=== PATIENT | male | born 1960 | race Caucasian/White ===

== ENCOUNTER 2019-04-03 19:10 | Observation (INO) ==
[2019-04-03] MEDS ORDERED: NS 1,000 ML IV ONE ×2 (19:26→22:06)
[2019-04-03] MEDS ORDERED: ZOFRAN IV ONE (19:26)
--- NOTE | 2019-04-03 20:05 | Diag Imaging Result Doc PS360 ---
EXAM: CT HEAD W/O CONTRAST 04/03/2019 HISTORY: dizziness TECHNIQUE: This exam was performed using automated exposure control, adjustment of mA or kV according to patient size, and/or use of iterative reconstruction technique. COMMENT: There is no evidence of mass effect, bleed, or abnormal extra-axial fluid collection. There is opacification of the visualized portion of the right maxillary sinus and mucosal thickening and fluid are seen in multiple ethmoid air cells bilaterally. There is mucosal thickening and fluid in the right sphenoid sinus. There is some fluid in mastoid air cells bilaterally more so on the right than the left. The calvarium is intact. IMPRESSION: No evidence of acute intracranial disease. Sinusitis as described with bilateral mastoid effusions. Electronically signed by Bassam Rodney 04/03/2019 8:03 PM
[2019-04-03 20:49] LABS: AGAP 14; ALBUMIN 5.7 g/dL (3.5-5.0); ALKALINE PHOSPHATASE 87 U/L (32-122); BUN 12 mg/dL (8-22); CALCIUM 10.8 mg/dL (8.8-10.2); CHLORIDE 98 mmol/L (98-107); COSMO 273; CREATININE 1.1 mg/dL (0.7-1.2); ESTIMATED GFR > 60; GLUCOSE 124 mg/dL (70-104); GOT 28 U/L (10-34); GPT 26 U/L (10-44); LIPASE 69 U/L (13-60); SODIUM 136 mmol/L (136-145); TCO2 24 mmol/L (25-35); TOTAL PROTEIN 8.4 g/dL (6.3-8.3)
[2019-04-03] MEDS ORDERED: TYLENOL PO ONE (20:52)
[2019-04-03 21:00] LABS: FREE T4 1.2 ng/dL (0.93-1.70); TSH 1.59 uIUmL (0.27-4.20)
[2019-04-03 21:20] LABS: BILIRUBIN URINE NEGATIVE (NEGATIVE); BLOOD URINE NEGATIVE (NEGATIVE); GLUCOSE URINE NEGATIVE (NEGATIVE); KETONE URINE 3+(Large) mg/dL (NEGATIVE); LEUKOCYTES URINE NEGATIVE (NEGATIVE); NITRITE URINE NEGATIVE (NEGATIVE); PROTEIN URINE NEGATIVE (NEGATIVE); SP GRAVITY URINE 1.015; UROBILINOGEN URINE 1 mg/dL
[2019-04-03 21:21] LABS: CLARITY CLEAR (CLEAR); COLOR YELLOW
[2019-04-03 21:26] LABS: BASO# 0.03 X1000 (0.0-0.2); BASO% 0.2 % (0.0-0.8); EOS# 0.04 X1000 (0.0-0.7); EOS% 0.3 % (0.0-10.0); HEMATOCRIT 47.4 % (42.0-52.0); HEMOGLOBIN 16.2 g/dL (14.0-18.0); IMM GRAN# 0.03 X1000 (0.0-0.04); IMM GRAN% 0.2 % (0.0-0.5); LYMPH% 8.5 % (20.5-51.1); MCH 30.8 PG (27-31); MCHC 34.2 g/dL (33-37); MCV 90.1 FL (81-99); MONO# 0.26 X1000 (0.11-0.59); MPV 9.4 FL (7.4-10.4); NEUT# 11.42 X1000 (1.4-6.5); NEUT% 88.8 % (42.2-75.2); PLT 308 X1000 (130-400); RBC 5.26 XMIL (4.7-6.1); RDW 12.7 % (11.5-14.5); WBC 12.88 X1000 (4.8-10.8)
[2019-04-03 21:27] LABS: URINE BACTERIA 2+ /HFP; URINE CAST NONE SEEN /LPF; URINE EPITHELIAL CELLS <10 /HPF (<10); URINE YEAST NONE SEEN /HPF
[2019-04-03 21:28] LABS: URINE SOURCE CLEAN CATCH; URINE WBC <10 /HPF (<10)
[2019-04-03 21:29] LABS: UR AMPHETAMINES QUAL NONE DETECTED (NONE DETECT); UR BARBITUATES QUAL NONE DETECTED (NONE DETECT); UR BENZODIAZEPIN QUAL PRESUMPTIVE POSITIVE (NONE DETECT); UR CANNABINOIDS QUAL PRESUMPTIVE POSITIVE (NONE DETECT); UR COCAINE QUAL NONE DETECTED (NONE DETECT); UR METHADONE QUAL NONE DETECTED (NONE DETECT); UR METHAMPHETAMINE QUAL NONE DETECTED (NONE DETECT); UR OPIATES QUAL NONE DETECTED (NONE DETECT); UR OXYCODONE QUAL NONE DETECTED (NONE DETECT); UR PCP QUAL NONE DETECTED (NONE DETECT); UR PROPOXYPHENE QUAL NONE DETECTED (NONE DETECT); UR TCA QUAL NONE DETECTED (NONE DETECT)
[2019-04-03] MEDS ORDERED: PHENERGAN IM ONE (21:46)
[2019-04-03] MEDS ORDERED: APRESOLINE IV ONE (21:47)
[2019-04-03] MEDS ORDERED: ZOFRAN IV PRN (21:55)
--- NOTE | 2019-04-03 21:56 | Diag Imaging Result Doc PS360 ---
EXAM: CHEST-PORTABLE 04/03/2019 HISTORY: dizziness, elevated BP TECHNIQUE: AP portable at 2152 COMMENT: There is no evidence of acute cardiac or pulmonary disease. Compared to 03/29/2019 there has been no significant change. IMPRESSION: No evidence of acute disease. Electronically signed by Bassam Rodney 04/03/2019 9:54 PM
[2019-04-03] MEDS ORDERED: CATAPRES PO PRN (21:57)
--- NOTE | 2019-04-03 22:01 | PROVIDER DOCUMENTATION ---
This chart was entered by Neftali Martinez Scribe, acting as scribe for Deidre Pierce MD. HPI-General Adult - General Chief Complaint: Dizziness Stated Complaint: EXTREMITY PAIN Time Seen by Provider: 04/03/19 19:23 Source: patient Allergies/Adverse Reactions: Patient Allergies Allergy/AdvReac Type Severity Reaction Status Date / Time No Known Allergies Allergy Verified 03/08/18 13:32 Home Medications: Home Medication List Medication Instructions Recorded Confirmed Last Taken Type Clonidine [Catapres] 1 tab PO HS 03/08/18 04/03/19 03/07/18 History Ziprasidone HCl [Geodon] 1 cap PO HS 03/08/18 04/03/19 Unknown History Atorvastatin Calcium 20 mg PO DAILY 04/03/19 04/03/19 04/03/19 History Methadone 5 mg PO BID 04/04/19 04/04/19 Unknown History - History of Present Illness -Gen Adult Nature of Presenting Problems: Pt is a 59 yom who presents to the ED with multiple complaints. Pt states he began feeling bad at approximately 1500. Pt complains of felling dizzy, having a headache, being nauseas, vomiting, having chills, and abdomen pain. Pt states he took a 5mg [place] but states it did not help. Location of Pain/Injury: reports: head, abdomen, generalized Quality of Pain: reports: aching Severity: reports: mild Onset/Duration: reports: 4-6 hours ago Timing: reports: still present Associated Symptoms: reports: dizziness, headaches, nausea, vomiting, weakness Similar Symptoms Previously?: No Recently seen or treated by another doctor?: No Review of Systems - Adult - REVIEW OF SYSTEMS - ADULT Constitutional: reports: see HPI, chills Eyes: reports: no symptoms reported Ears, Nose, Mouth & Throat: reports: no symptoms reported Cardiovascular: reports: no symptoms reported Respiratory: reports: no symptoms reported Gastrointestinal: reports: see HPI, abdominal pain (Epigastric), nausea, vomiting Genitourinary: reports: no symptoms reported Musculoskeletal: reports: no symptoms reported Integumentary: reports: no symptoms reported Neurological: reports: see HPI, dizziness/vertigo, headache/migraines Psychiatric: reports: no symptoms reported Endocrine: reports: no symptoms reported Hematologic/Lymphatic: reports: no symptoms reported Allergic/Immunologic: reports: no symptoms reported All Other Systems: Reviewed and Negative Past History - Adult - PAST MEDICAL HISTORY-ADULT Review of Records: reports: Old Records Reviewed, Nursing Assessment Review, Medications Reviewed, Social history reviewed & non-contributory. Major Childhood Illnesses: reports: denies history Cardiovascular: reports: denies history Respiratory: reports: denies history Gastrointestinal: reports: denies history Obstetrical/Gynecological: reports: denies history Genitourinary: reports: denies history Musculoskeletal: reports: denies history Neurological: reports: denies history Endocrine/Immune: reports: denies history Other Conditions: reports: denies history - IMMUNIZATION STATUS Childhood Immunizations: See Nurse Assessment Flu Vaccine: See Nurse Assessment - FAMILY HISTORY Family History: reviewed, not pertinent - SOCIAL HISTORY Smoking: cigarettes, greater than 1 pack/day Substance Use: none/never, denies Alcohol Use Frequency: never Physical Exam-General - PHYSICAL EXAM-ADULT Initial Vital Signs Reviewed: Yes - CONSTITUTIONAL General Appearance: alert, mild distress - EYES Eyes: PERRL/EOMI - HEAD, EARS, NOSE, MOUTH & THROAT HENMT: normocephalic/atraumatic, moist mucous membranes - NECK Neck: non-tender, full range of motion - RESPIRATORY Respiratory: chest non-tender, lungs clear, normal breath sounds, no pleuratic chest pain, no respiratory distress, no accessory muscle use - CARDIOVASCULAR Cardiovascular: normal peripheral pulses, regular rate, rhythm, no edema, no murmur - GASTROINTESTINAL (ABDOMEN) Abdominal Exam: soft, tenderness (Epigastric) - MUSCULOSKELETAL Extremity: normal range of motion, non-tender - SKIN Integumentary: normal color, diaphoresis - NEUROLOGIC Neurologic: grossly normal, no motor/sensory deficits - PSYCHIATRIC Psych/Mental Status: normal mood/affect, normal thought content, normal thought process, oriented x 3 Progress - PLAN OF CARE/RESULTS Progress/Plan/Lab Results: Vital Signs - 8 hr 04/03/19 19:13 Temperature 97.6 F Pulse Rate 68 Respiratory Rate 22 Blood Pressure 218/113 O2 Sat by Pulse Oximetry 98 Patient still complaining of dizziness. Spoke to Dr Gordillo about admission for further workup. Patient accepted to Dr Gordillo for admission. Stable for floor. Result Diagrams: 04/03/19 20:27 04/03/19 19:52 - XRAY 1 XRAY Study: Chest (EXAM: CHEST-PORTABLE 04/03/2019 HISTORY: dizziness, elevated BP TECHNIQUE: AP portable at 2152 COMMENT: There is no evidence of acute cardiac or pulmonary disease. Compared to 03/29/2019 there has been no signifi cant change. IMPRESSION: No evidence of acute disease. Electronically signed by Bassam Rodney 04/03/2019 9:54 PM) - CT/MRI 1 CT Study: Head (EXAM: CT HEAD W/O CONTRAST 04/03/2019 HISTORY: dizziness TECHNIQUE: This exam was performed using automated exposure control, adjustment of mA or kV according to patient size, and/or use of iterative reconstruction technique. COMMENT: There is no evidence of mass effect, bleed, or abnormal ex tra-axial fluid collection. There is opacification of the visualized portion of the right maxillary sinus and mucosal thickening and fluid are seen in multiple ethmoid air cells bilaterally. There is mucosal thickening and fluid in the right sphenoid sinus. There is some fluid in mastoid air cells bilaterally more so on the right than the left. The calvarium is intact. IMPRESSION: No evidence of acute intracranial disease. Sinusitis as described with bilateral mastoid effusions. Electronically signed by Bassam Rodney 04/03/2019 8:03 PM) - CONSULTS/PCP/HOSPITALIST Notification #1 *Consult/PCP/Hospitalist*: Rand Time Discussed: 21:50 Consult Disposition: Admit Departure - Departure Date of Disposition Decision: 04/03/19 Time of Disposition Decision: 22:00 DIAGNOSIS: Dizziness, Hypertensive urgency, Nausea Headache Qualifiers: Headache type: unspecified Disposition: ADMITTED INPATIENT Certified Medical Emergency: Emergent Condition: Stable - Critical Care Note This patient required my direct & personal management of CC.: No Attestation - Physician/ TACHO Attestation Patient care was provided by Advanced Practice Provider:: No The physician spent face to face time with patient:: Yes Advanced Practice Provider documentation review:: Supervising physician onsite and consulted in the evaluation and care of this patient. The physician did have a face to face encounter with the patient. This chart was documented by the indicated scribe, (Neftali Martinez Scribe) and accurately reflects the services I performed and decisions made by me, Deidre Pierce MD, as attested by the provider's signature.
[2019-04-03 22:05] LABS: INR 0.93; PROTIME 12.9 Seconds (11.0-16.0)
[2019-04-03 22:06] LABS: PTT 29.6 Seconds (22.3-41.8)
[2019-04-03 23:01] LABS: INFLUENZA A NEGATIVE (NEGATIVE); INFLUENZA B NEGATIVE (NEGATIVE)
[2019-04-04] MEDS ORDERED: GEODON PO SCH ×2 (00:46→01:00)
[2019-04-04] MEDS ORDERED: CATAPRES PO SCH ×2 (00:46→01:00)
[2019-04-04] MEDS: METHADONE PO SCH ×2 (01:06→09:57)
--- NOTE | 2019-04-04 06:22 | EKG Report ---
Test Performed on : 04/04/2019 06:09:21 AM Test Reason : dizziness Blood Pressure : / mmHG Vent. Rate : 071 BPM Atrial Rate : 071 BPM P-R Int : 158 ms QRS Dur : 084 ms QT Int : 432 ms P-R-T Axes : 058 026 047 degrees QTc Int : 469 ms Normal sinus rhythm. Normal ECG No previous ECGs available Unconfirmed Result
[2019-04-04 08:19] VITALS: BP 123/77
[2019-04-04] MEDS ORDERED: LIPITOR PO SCH (09:00)
[2019-04-04] MEDS ORDERED: ROCEPHIN 1 GM in NS 50 ML IV ONE (09:15)
--- NOTE | 2019-04-04 14:25 | EKG Report ---
Test Performed on : 04/04/2019 2:26:33 PM Test Reason : DIZZINESS Blood Pressure : / mmHG Vent. Rate : 075 BPM Atrial Rate : 075 BPM P-R Int : 158 ms QRS Dur : 088 ms QT Int : 430 ms P-R-T Axes : 068 027 055 degrees QTc Int : 480 ms Normal sinus rhythm. Prolonged QT Abnormal ECG When compared with ECG of 04-APR-2019 06:09, (Unconfirmed) No significant change was found Unconfirmed Result
--- NOTE | 2019-04-12 08:00 | HISTORY AND PHYSICAL ---
59-year-old white male patient of mine who presented to the emergency room with multiple complaints. He had been feeling bad approximately since 1500 hours that day. Complains of feeling dizzy, having a headache, being nauseated, vomiting, shaking chills, abdominal pain. He took a 5 mg [place] and did not help. He is on background methadone medicines. He complained of generalized headache and abdominal pain described as aching, mild. It had been 4-6 hours in duration, still present. He had some associated dizziness, headache, nausea, vomiting, weakness. Nothing quite similar to this. ALLERGIES: He has no known allergies. MEDICATIONS: 1. Clonidine 0.1 at bedtime. 2. Geodon 1 capsule p.o. at bedtime. 3. Lipitor 20 daily. 4. Methadone 5 b.i.d. REVIEW OF SYSTEMS: GENERAL: He has been having shaking chills. EYES: No irritation, visual acuity changes, field cuts. EARS: He had some earaches lately and had been started on some Septra for the same. Had some nasal congestion symptoms suggestive of sinusitis. CARDIOVASCULAR: He denies any chest pain, palpitations, edema, PND or orthopnea, TEJEDA. RESPIRATORY: He is a smoker. No significant increased cough. No phlegm. GASTROINTESTINAL: He has epigastric abdominal pain, some nausea and vomiting. No diarrhea. No melena. No hematochezia. GENITOURINARY: No dysuria, polyuria, pyuria, hematuria. MUSCULOSKELETAL: Just generalized muscle aches. SKIN: No rashes or lesions identified. NEUROLOGICAL: He had some dizziness and vertigo, headaches and migraine he thinks. PSYCHIATRIC: He has chronic anxiety. ENDOCRINE: No diabetes, thyroid disease. HEMATOLOGICAL: No bleeding, clotting disorders. No anemia. ALLERGIES: No hayfever or asthma. PAST MEDICAL HISTORY: He is a smoker, not a drinker. He has had a previous laminectomy which caused him pain before and after the surgery, no significant benefit. He smokes greater than a pack a day. PHYSICAL EXAMINATION: VITAL SIGNS: At the time of admission, he was afebrile. Temp was 97.6 degrees, pulse was 68, respiratory rate was 22, blood pressure 218/113. HEENT: Head was normocephalic. Eyes were PERRL. EOMs intact. SC clear. Fundi benign. Nares patent. Oropharynx negative. NECK: Supple with bounding carotids without thyromegaly. CHEST: Clear bilaterally. No consolidative findings. No wheezing. CARDIOVASCULAR: Regular rhythm and rate. No murmurs, gallops, clicks or rubs. ABDOMEN: Soft. No hepatosplenomegaly. No CVA tenderness. EXTREMITIES: Negative for cyanosis, clubbing or edema. ADMITTING DIAGNOSIS: Chest x-ray which showed no evidence of any disease. A CT study of his head which showed no issues of his head. There is no evidence of a mass effect, bleed or abnormal extraaxial fluid collection. There is opacification of the visualized portion of the right maxillary sinus and mucosal thickening and fluid are seen in the multiple ethmoid air cells bilaterally. There is mucosal thickening and fluid in the right sphenoid sinus. There is some fluid in the mastoid cells bilaterally, more so on the right than the left. Calvarium is intact. IMPRESSION: No evidence of acute intracranial disease, sinusitis as described with bilateral mastoid effusions. He was admitted for therapy in addition to his Septra that he has already been taking. cc: Ashvin Gordillo MD
--- NOTE | 2019-04-12 20:04 | DISCHARGE SUMMARY ---
ADMISSION DATE: 04/03/2019 DISCHARGE DATE: 04/04/2019 HISTORY OF PRESENT ILLNESS: He presented with headaches and general prostration, sinus congestion, extreme anxiety. Blood pressure was significantly elevated when he arrived. HOSPITAL COURSE: His workup included the following - he had a negative urine culture. Laboratory - white count was 12,880, hematocrit was 47.4, platelet count was 308, he had a left shift. Coags were negative. D dimer was 0.37. Chemistries - electrolytes were basically normal. BUN 12, creatinine 1.2, and GFR greater than 60. Glucose 124, calcium 10.8, AST 28, and ALT 26. Serial cardiac enzymes were negative. Total protein was slightly elevated at 8.4, based on an albumin of 5.7. Lipase was 69. TSH was 1.59. Free T4 was 1.2. Urinalysis 3+ ketones, otherwise 2+ bacteria. Toxicology positive for benzodiazepines and cannabinoids. He was placed on antibiotics. It became evident that more than likely the source of his fever was going to be his sinuses. He was placed on Rocephin 1 gram. He was given clonidine and hydralazine for his blood pressure. He was discharged on his medicines plus Levaquin that he had been on before and responded. DIAGNOSES: 1. Diffuse sinusitis. 2. Hypertension. cc: Ashvin Gordillo MD
== END 2019-04-04 14:33 | disposition home or self-care (01) ==
LOC: P.ED 19:10 → INTOOBSV 19:11 → P.MEDSURG 19:11
PROVIDERS: ADMIT Internal Medicine; ATTEND Internal Medicine